=== PATIENT | male | born 1950 | race Caucasian/White ===

== ENCOUNTER 2016-11-02 01:20 | Emergency (ER) | payer MEDICARE, OTHER ==
[~2016-11-02] VITALS: Ht 177.8 cm; Wt 140.5 kg
[~2016-11-02 01:20] MED LIST: ASPIRIN81 MG PO; CELEBREX200 MG PO; HYDROCHLOROTHIA25 MG; HYDROCHLOROTHIA25 MG PO; LOTREL 5/20 MG1 CAP; LOTREL 5/20 MG1 CAP PO; LOTREL 5/201 CAP PO; LOVASTATIN40 M1 PO; LOVASTATIN40 MG; LOVENOX40 MG/0.4 SQ; MEVACOR40 MG PO; NIACIN FLUSH FR1 CAP PO; NIACIN50 PO; NORCO 5/325 TAB1 TAB PO; OMEPRAZOLE20 M2 PO; PERCOCET 5/3251 TAB PO; PROTONIX40 MG; PROTONIX40 MG PO; RANITIDINE HCL150 MG PO; TAGAMET300 MG PO; TYLENOL325 M1 PO; ULTRAM50 MG PO
[2016-11-02] MEDS ORDERED: [UNRECOGNIZED DRUG - OTHER] PO (01:27)
[2016-11-02] MEDS ORDERED: LEVAQUIN500 M1 PO (01:27)
[2016-11-02] MEDS ORDERED: AFRIN15 M2 (01:28)
[2016-11-02] MEDS ORDERED: ASPIR 8181 M1 PO (01:29)
[2016-11-02] MEDS ORDERED: FLOMAX0.4 M1 (01:31)
== END 2016-11-02 02:34 ==
LOC: EDMED 01:20
DX: J32.9 Chronic sinusitis, unspecified (principal); I10 Essential (primary) hypertension; K21.9 Gastro-esophageal reflux disease without esophagitis; N40.0 Benign prostatic hyperplasia without lower urinary tract symptoms; Z79.82 Long term (current) use of aspirin; Z79.890 Hormone replacement therapy